=== PATIENT | male | born 1955 | race Caucasian/White ===

== ENCOUNTER 2020-08-29 09:56 | Outpatient (REF) | payer MEDICARE, MEDICAID, SELFPAY | END 2020-08-29 09:57 | disposition home or self-care (01) | LOC: HO.HMGCLDS 09:56 | PROVIDERS: Visit Provider Internal Medicine | DX: Z20.828 Contact with and (suspected) exposure to other viral communicable diseases (principal) | CPT/HCPCS: C9803; U0003 ==

== ENCOUNTER 2021-12-20 11:44 | Outpatient (REF) | payer MEDICARE, MEDICAID, SELFPAY ==
--- NOTE | ~2021-12-20 | XR_ITS ---
EXAMINATION: XR CERVICAL SPINE CLINICAL INFORMATION: Cervicalgia COMPARISON: None TECHNIQUE: AP, lateral, bilateral oblique, odontoid and swimmer's views FINDINGS: No acute fracture or traumatic malalignment. Moderate loss of disc space height and accompanying endplate osteophytes present at C5-C6. Small endplate osteophytes present at C6-C7 and C7-T1. There is slight anterolisthesis of C2 on C3 and C3 on C4 related to facet arthropathy which is present throughout the cervical spine. Oblique views demonstrate moderate right osseous neural foraminal encroachment at C5-C6 and C6-C7, and mild left osseous neural foraminal encroachment at C5-C6. Paraspinal soft tissues unremarkable. XR/XR cervical spine 4V IMPRESSION: No acute fracture or traumatic malalignment. Cervical spondylosis and foraminal narrowing as described.
== END 2021-12-20 11:45 | disposition home or self-care (01) ==
LOC: HO.XRAY 11:44
PROVIDERS: PCP Internal Medicine; Visit Provider Internal Medicine
DX: M54.2 Cervicalgia (principal)
CPT/HCPCS: 72050